=== PATIENT | female | born 1945 | race Caucasian/White ===

== ENCOUNTER 2017-10-02 08:48 | Emergency (ER) | payer MEDICARE ==
[~2017-10-02] VITALS: Ht 160 cm; Wt 52.3 kg
[~2017-10-02 08:48] MED LIST: BUPR300T49 PO; COLESTIPOL PO; DIPH25CA61 PO; PRAV20TA2 PO
[2017-10-02] MEDS ORDERED: DILT120C9 PO (08:59)
[2017-10-02 09:36] LABS: BASOPHILS # (AUTO) 0.02 x10^3/uL (0-0.1); BASOPHILS % (AUTO) 0 % (0-1); EOSINOPHILS # (AUTO) 0.04 x10^3/uL (0-0.4); EOSINOPHILS % (AUTO) 1 % (1-7); LYMPHOCYTES # (AUTO) 1.55 x10^3/uL (1-3.4); LYMPHOCYTES % (AUTO) 29 % (22-44); MD NO; MEAN CORPUSCULAR HEMOGLOBIN 32.7 pg (27.0-34.8); MEAN CORPUSCULAR HGB CONC 33.8 g/dL (32.4-35.8); MEAN CORPUSCULAR VOLUME 96.7 fL (80-100); MEAN PLATELET VOLUME 6.3 fL (7.4-10.4); MONOCYTES # (AUTO) 0.55 x10^3/uL (0.2-0.8); MONOCYTES % (AUTO) 10 % (2-9); NEUTROPHILS # (AUTO) 3.23 x10^3/uL (1.8-6.8); NEUTROPHILS % (AUTO) 60 % (42-75); PLATELET COUNT 301 x10^3/uL (130-400); RED BLOOD COUNT 3.98 x10^6/uL (3.82-5.3); RED CELL DISTRIBUTION WIDTH 13.3 % (9.6-15.2)
[2017-10-02 09:40] LABS: ALBUMIN 3.1 g/dL (3.4-5.0); ANION GAP 7 mmol/L (5-15); CHLORIDE 107 mmol/L (98-107); INTERNATIONAL NORMALIZED RATIO 0.96 (0.93-1.1)
[2017-10-02] MEDS ORDERED: LORazepam 2 MG/ML, 1ML IVPush ONE (11:00)
[2017-10-02] MEDS ORDERED: LORazepam 2 MG/ML, 1ML ONE (11:00)
[2017-10-02] MEDS ORDERED: GADOBUTROL 2 MMOL/2 ML VIAL ONE (11:28)
[2017-10-02 14:05] VITALS: BP 130/75
== END 2017-10-02 14:17 | disposition home or self-care (01) ==
LOC: ED 10:26
DX: H53.2 Diplopia (principal); I10 Essential (primary) hypertension; Z86.73 Personal history of transient ischemic attack (TIA), and cerebral infarction without residual deficits; R79.1 Abnormal coagulation profile
CPT/HCPCS: 36415; 70450; 70553; 80048; 82040; 85025; 85610; 85730; 93005; 96374; 99285; A9585; J2060

== ENCOUNTER 2017-10-04 13:04 | Emergency (ER) | payer MEDICARE ==
[~2017-10-04] VITALS: Ht 160 cm; Wt 53.0 kg
[~2017-10-04 13:04] MED LIST changes: +DILT120C9 PO
[2017-10-04 14:25] LABS: BASOPHILS # (AUTO) 0.03 x10^3/uL (0-0.1); BASOPHILS % (AUTO) 1 % (0-1); EOSINOPHILS # (AUTO) 0.05 x10^3/uL (0-0.4); EOSINOPHILS % (AUTO) 1 % (1-7); LYMPHOCYTES # (AUTO) 2.17 x10^3/uL (1-3.4); LYMPHOCYTES % (AUTO) 40 % (22-44); MD NO; MEAN CORPUSCULAR HEMOGLOBIN 33.1 pg (27.0-34.8); MEAN CORPUSCULAR HGB CONC 33.9 g/dL (32.4-35.8); MEAN CORPUSCULAR VOLUME 97.5 fL (80-100); MEAN PLATELET VOLUME 6.5 fL (7.4-10.4); MONOCYTES % (AUTO) 11 % (2-9); NEUTROPHILS # (AUTO) 2.62 x10^3/uL (1.8-6.8); NEUTROPHILS % (AUTO) 48 % (42-75); PLATELET COUNT 300 x10^3/uL (130-400); RED BLOOD COUNT 4.01 x10^6/uL (3.82-5.3); RED CELL DISTRIBUTION WIDTH 13.9 % (9.6-15.2)
[2017-10-04] MEDS ORDERED: ONDANSETRON ODT 4 MG PO ONE (14:30)
[2017-10-04] MEDS ORDERED: ONDANSETRON ODT 4 MG ONE (14:30)
[2017-10-04 14:35] LABS: ALANINE AMINOTRANSFERASE 38 U/L (12-78); ALBUMIN 3.3 g/dL (3.4-5.0); ANION GAP 6 mmol/L (5-15); CHLORIDE 110 mmol/L (98-107); CREATININE 0.67 mg/dL (0.55-1.02)
[2017-10-04 14:39] LABS: ALKALINE PHOSPHATASE 91 U/L (45-117); BILIRUBIN,TOTAL 0.4 mg/dL (0.2-1.0); TOTAL PROTEIN 6.9 g/dL (6.4-8.2); TROPONIN I < 0.015 ng/mL (0.000-0.045)
[2017-10-04 14:59] LABS: MICROSCOPIC AUTO
[2017-10-04 15:05] LABS: CULTURE INDICATED? YES
[2017-10-04 16:15] VITALS: BP 136/81
== END 2017-10-04 16:18 | disposition home or self-care (01) ==
LOC: ED 15:14
DX: R42 Dizziness and giddiness (principal); R11.0 Nausea; R53.83 Other fatigue; I10 Essential (primary) hypertension; Z86.73 Personal history of transient ischemic attack (TIA), and cerebral infarction without residual deficits; Z98.51 Tubal ligation status
CPT/HCPCS: 36415; 80053; 81001; 84484; 85025; 87086; 93005; 99285; Q0162

== ENCOUNTER 2020-04-12 21:26 | Inpatient (IN) | payer MEDICARE ==
[~2020-04-12] VITALS: Ht 160 cm; Wt 50.0 kg
[~2020-04-12 21:26] MED LIST changes: +DILT120C48 PO; -DILT120C9 PO
[2020-04-12] MEDS ORDERED: SODIUM CHLORIDE FLUSH 10ML SYR IVF ONE (22:00)
[2020-04-12] MEDS ORDERED: MORPHINE SULFATE 4 MG/ML, 1ML IVPush PRN (22:00)
[2020-04-12 22:15] LABS: BASOPHILS % (AUTO) 1 % (0-1); EOSINOPHILS % (AUTO) 3 % (1-7); LYMPHOCYTES % (AUTO) 34 % (22-44); MEAN CORPUSCULAR HEMOGLOBIN 33.1 pg (27.0-34.8); MEAN CORPUSCULAR HGB CONC 33.8 g/dL (32.4-35.8); MEAN PLATELET VOLUME 6.9 fL (7.4-10.4); MONOCYTES % (AUTO) 11 % (2-9); NEUTROPHILS % (AUTO) 51 % (42-75); PLATELET COUNT 239 x10^3/uL (130-400); RED CELL DISTRIBUTION WIDTH 13.2 % (9.6-15.2)
[2020-04-12 22:17] LABS: MD NO
[2020-04-12 22:23] LABS: ALBUMIN 3.2 g/dL (3.4-5.0); ANION GAP 7 mmol/L (5-15); CALCIUM 8.7 mg/dL (8.5-10.1); CHLORIDE 113 mmol/L (98-107); CREATININE 0.66 mg/dL (0.55-1.02)
--- NOTE | 2020-04-12 23:05 | NUR ---
Fem cath tolerated well and urine sent. Pt calm in room. at bedside. Pt with stable vS. non labored breathing. Pt has pain with deep breathing. Will monitor.
[2020-04-12 23:26] LABS: MICROSCOPIC NOT IND
[2020-04-13] MEDS ORDERED: GABAPENTIN 300 MG CAPSULE PO ONE
[2020-04-13] MEDS ORDERED: GABAPENTIN 300 MG CAPSULE ONE (00:05)
[2020-04-13] MEDS ORDERED: FENTANYL PF 100 MCG/2ML ONE (00:29)
[2020-04-13] MEDS ORDERED: FENTANYL PF 100 MCG/2ML IV ONE (00:30)
--- NOTE | 2020-04-13 00:43 | NUR ---
Pt having increased pain. EDP aware, order or fentanyl, and pt medicated with relief. repeat EKG and CXR done. Pt on 2L nc after fent. IS performed x 3 at 1250. Pt remains A&O. Dr Hunter at bedside. Will monitor
[2020-04-13] MEDS ORDERED: ACETAMINOPHEN 325 MG TABLET PO PRN (01:00)
[2020-04-13] MEDS ORDERED: HYDROmorphone 2 MG/ML, 1ML IVPush PRN (01:00)
[2020-04-13] MEDS ORDERED: MELATONIN 5 MG TABLET PO PRN (01:00)
[2020-04-13] MEDS ORDERED: ENOXAPARIN 40 MG/0.4 ML SQ SCH (01:00)
[2020-04-13] MEDS ORDERED: ONDANSETRON 2MG/ML, 2ML IVPush PRN (01:00)
[2020-04-13] MEDS ORDERED: hydrALAzine 20 MG/ML, 1ML IVPush PRN (01:00)
[2020-04-13] MEDS ORDERED: KETOROLAC 30 MG/1 ML IV PRN (01:00)
[2020-04-13] MEDS ORDERED: ENOXAPARIN 40 MG/0.4 ML ONE (01:52)
[2020-04-13] MEDS ORDERED: HYDROmorphone 2 MG/ML, 1ML ONE (01:53)
[2020-04-13] MEDS ORDERED: ONDANSETRON 2MG/ML, 2ML ONE (01:53)
--- NOTE | 2020-04-13 02:17 | NUR ---
REPORT TO [facility] PT TO FLOOR WITH TECH
[2020-04-13] MEDS ORDERED: PROMETHAZINE 25 MG/ML, 1ML IM PRN (06:00)
[2020-04-13 07:23] VITALS: BP 120/72
[2020-04-13] MEDS ORDERED: SENNA/DOCUSATE TABLET PO SCH (09:00)
[2020-04-13] MEDS ORDERED: BUPROPION SR 150 MG TABLET PO SCH (09:00)
[2020-04-13] MEDS ORDERED: TRAM50TA2 PO (13:01)
[2020-04-13 13:16] VITALS: BP 107/67
[2020-04-13 13:57] VITALS: BP 131/75
[2020-04-13 15:52] VITALS: BP 139/74
== END 2020-04-13 16:45 | disposition home or self-care (01) | DRG 184 ==
LOC: ED 22:08 → EDIP 04-13 00:07 → 4NE 04-13 03:01 → DCLOUNGE 04-13 16:32
PROVIDERS: ADMIT Family Medicine; ATTEND Hospitalist
DX: S22.41XA Multiple fractures of ribs, right side, initial encounter for closed fracture (principal); E44.1 Mild protein-calorie malnutrition; Z68.1 Body mass index [BMI] 19.9 or less, adult; K91.2 Postsurgical malabsorption, not elsewhere classified; W01.0XXA Fall on same level from slipping, tripping and stumbling without subsequent striking against object, initial encounter; F41.9 Anxiety disorder, unspecified; Z90.49 Acquired absence of other specified parts of digestive tract; Z88.0 Allergy status to penicillin; Z88.2 Allergy status to sulfonamides; Z88.8 Allergy status to other drugs, medicaments and biological substances; Z88.1 Allergy status to other antibiotic agents; Z91.041 Radiographic dye allergy status; Y93.89 Activity, other specified; Y92.89 Other specified places as the place of occurrence of the external cause; Y99.8 Other external cause status; Y83.8 Other surgical procedures as the cause of abnormal reaction of the patient, or of later complication, without mention of misadventure at the time of the procedure; Y92.9 Unspecified place or not applicable
CPT/HCPCS: 36415; 71045; 71250; 74176; 80048; 81003; 82040; 85025; 93005; J1170; J1650; J1885; J2405; J2550; J3010

== ENCOUNTER 2020-04-15 04:25 | Emergency (ER) | payer MEDICARE ==
[~2020-04-15 04:25] MED LIST changes: +TRAM50TA2 PO
[2020-04-15 06:09] LABS: BASOPHILS % (AUTO) 1 % (0-1); EOSINOPHILS % (AUTO) 1 % (1-7); LYMPHOCYTES % (AUTO) 24 % (22-44); MEAN CORPUSCULAR HEMOGLOBIN 33.2 pg (27.0-34.8); MEAN CORPUSCULAR HGB CONC 33.8 g/dL (32.4-35.8); MEAN PLATELET VOLUME 6.7 fL (7.4-10.4); MONOCYTES % (AUTO) 12 % (2-9); NEUTROPHILS % (AUTO) 62 % (42-75); PLATELET COUNT 224 x10^3/uL (130-400); RED BLOOD COUNT 3.74 x10^6/uL (3.82-5.3); RED CELL DISTRIBUTION WIDTH 13.1 % (9.6-15.2)
[2020-04-15 06:24] LABS: ALBUMIN 3.1 g/dL (3.4-5.0); ANION GAP 4 mmol/L (5-15); CHLORIDE 105 mmol/L (98-107)
[2020-04-15 06:28] LABS: ALANINE AMINOTRANSFERASE 62 U/L (12-78); ALKALINE PHOSPHATASE 99 U/L (45-117); CREATININE 0.64 mg/dL (0.55-1.02); TOTAL PROTEIN 6.7 g/dL (6.4-8.2)
[2020-04-15 06:37] LABS: MD NO
--- NOTE | 2020-04-15 06:48 | NUR ---
RECEIVED PT REPORT FROM FELTON CORTEZ
[2020-04-15] MEDS ORDERED: hydrALAzine 20 MG/ML, 1ML IVPush PRN (08:00)
[2020-04-15] MEDS ORDERED: TEMAZEPAM 15 MG CAPSULE PO PRN (08:00)
[2020-04-15] MEDS ORDERED: MELATONIN 5 MG TABLET PO PRN (08:00)
[2020-04-15] MEDS ORDERED: ONDANSETRON 2MG/ML, 2ML IVPush PRN (08:00)
[2020-04-15] MEDS ORDERED: LORazepam 2 MG/ML, 1ML IVPush PRN (08:00)
[2020-04-15] MEDS ORDERED: POLYETHYLENE GLYCOL 17 GM PACKET PO PRN (08:00)
[2020-04-15] MEDS ORDERED: ACETAMINOPHEN 325 MG TABLET PO PRN (08:00)
[2020-04-15] MEDS ORDERED: BISACODYL 10 MG SUPP PR PRN (08:00)
[2020-04-15] MEDS ORDERED: DOCUSATE 100 MG CAPSULE PO PRN (08:00)
[2020-04-15] MEDS ORDERED: FAMOTIDINE 20 MG TABLET ONE (08:28)
[2020-04-15] MEDS ORDERED: FAMOTIDINE 20 MG TABLET PO SCH (09:00)
[2020-04-15] MEDS ORDERED: PLEASE ENTER HEIGHT AND WEIGHT MC SCH (09:00)
--- NOTE | 2020-04-15 09:10 | NUR ---
MARISEL, MALIA [phone]
--- NOTE | 2020-04-15 09:11 | NUR ---
PT WANTING TO GO HOME. PT'S CONTACTED ABOUT PICKING HER UP.
[2020-04-15 10:23] VITALS: BP 129/70
--- NOTE | 2020-04-15 12:16 | NUR ---
at bedside. Reviewed medication plan and home healthcare, importance of incentive spirometry use teach back successful
== END 2020-04-15 12:20 | disposition home or self-care (01) ==
LOC: ED 05:15 → UNDOADMIN 07:42 → EDIP 07:42 → ED 12:20
DX: G89.11 Acute pain due to trauma (principal); R07.81 Pleurodynia; W01.0XXA Fall on same level from slipping, tripping and stumbling without subsequent striking against object, initial encounter; Y93.89 Activity, other specified; Y92.89 Other specified places as the place of occurrence of the external cause; Y99.8 Other external cause status
CPT/HCPCS: 36415; 80053; 85025; 99283